=== PATIENT | female | born 1965 | race Hispanic/Latino ===

== ENCOUNTER 2019-02-25 21:20 | Observation (INO) | payer MEDICAID ==
[2019-02-25] MEDS ORDERED: ASPIRIN PO ONE (21:41)
[2019-02-25] MEDS ORDERED: MORPHINE IV ONE (21:47)
[2019-02-25] MEDS ORDERED: ZOFRAN IV ONE (21:47)
--- NOTE | 2019-02-25 21:47 | Emergency Department Report ---
ED Chest Pain HPI - General Chief Complaint: Chest Pain Stated Complaint: CHEST PAINS Time Seen by Provider: 02/25/19 21:29 Source: patient Mode of arrival: Ambulatory Limitations: No Limitations - History of Present Illness Initial Comments: 53-year-old female with history of CAD status post stents 2 and CABG,diabetes, presents to ED with chest pain since 3 PM. Patient states pain initially felt like indigestion. States it has been constant and began to worsen and around 8 PM. Patient states she took nitroglycerin 2 without relief, so she came to the ER. Patient reports nausea, no vomiting. Denies diaphoresis, shortness of breath. Patient states pain currently feels a tightness and pressure, similar to her previous episodes of chest pain that resulted in stent placement. Cardiology: [facility] Complaint: chest pain -: hour(s) (6) Onset: during rest Pain Location: left chest Pain Radiation: none Severity: severe Quality: tightness, pressure Consistency: constant Improves With: nothing Worsens With: nothing re: nausea. denies: vomting, diaphoresis, dyspnea Other Symptoms: denies: cough, fever Treatments Prior to Arrival: nitroglycerin Aspirin use within the Past 7 Days: (1) Yes (baby aspirin) - Related Data Allergies Allergy/AdvReac Type Severity Reaction Status Date / Time Penicillins Allergy Unknown Verified 02/25/19 21:26 Heart Score - HEART Score History: Moderately suspicious EKG: Normal Age: 45-65 Risk factors: > 3 risk factors or hx of atherosclerotic disease Troponin: < normal limit HEART Score: 4 ED Review of Systems ROS: Stated complaint: CHEST PAINS Other details as noted in HPI Comment: All other systems reviewed and negative Constitutional: denies: chills, fever Respiratory: denies: shortness of breath Cardiovascular: chest pain Gastrointestinal: nausea. denies: abdominal pain, vomiting ED Physical Exam - General Limitations: No Limitations General appearance: alert, other (appears uncomfortable) - Head Head exam: Present: atraumatic, normocephalic - Eye Eye exam: Present: normal appearance, PERRL, EOMI - ENT ENT exam: Present: mucous membranes moist - Neck Neck exam: Present: normal inspection - Respiratory Respiratory exam: Present: normal lung sounds bilaterally. Absent: respiratory distress - Cardiovascular Cardiovascular Exam: Present: regular rate, normal rhythm - GI/Abdominal GI/Abdominal exam: Present: soft. Absent: distended, tenderness - Extremities Exam Extremities exam: Present: normal inspection - Neurological Exam Neurological exam: Present: alert, oriented X3 - Psychiatric Psychiatric exam: Present: normal affect, normal mood - Skin Skin exam: Present: warm, dry, intact, normal color ED Course Vital Signs 02/25/19 02/25/19 02/25/19 21:23 21:40 21:45 Temperature 97.6 F 97.8 F Pulse Rate 94 H 81 84 Respiratory 20 12 15 Rate Blood Pressure 171/91 162/83 125/80 O2 Sat by Pulse 99 98 99 Oximetry 02/25/19 02/25/19 02/25/19 22:04 22:05 22:15 Temperature Pulse Rate 85 93 H Respiratory 16 10 L Rate Blood Pressure 135/66 118/60 O2 Sat by Pulse 95 Oximetry 02/25/19 02/25/19 02/25/19 22:28 22:30 23:16 Temperature Pulse Rate 89 90 Respiratory 22 16 Rate Blood Pressure 118/60 118/60 O2 Sat by Pulse 98 99 Oximetry 02/25/19 02/26/19 02/26/19 23:30 00:00 00:13 Temperature Pulse Rate 75 74 74 Respiratory 18 18 19 Rate Blood Pressure 130/72 121/65 123/72 O2 Sat by Pulse 96 95 97 Oximetry 02/26/19 02/26/19 02/26/19 01:00 01:30 02:00 Temperature Pulse Rate 83 77 75 Respiratory 9 L 16 15 Rate Blood Pressure 120/70 123/75 121/79 O2 Sat by Pulse 97 96 96 Oximetry 02/26/19 02/26/19 02/26/19 02:30 03:00 03:30 Temperature Pulse Rate 77 77 77 Respiratory 10 L 14 11 L Rate Blood Pressure 115/62 99/61 115/71 O2 Sat by Pulse 97 95 94 Oximetry 02/26/19 02/26/19 02/26/19 04:00 04:30 05:01 Temperature Pulse Rate 76 137 H Respiratory 21 27 H 14 Rate Blood Pressure 123/75 116/76 117/67 O2 Sat by Pulse 95 94 99 Oximetry ED Medical Decision Making - Lab Data Result diagrams: 02/25/19 21:35 02/25/19 21:35 - EKG Data -: EKG Interpreted by [place] EKG shows normal: sinus rhythm, axis, intervals, QRS complexes, ST-T waves Rate: normal - EKG Data Interpretation: no acute changes - Radiology Data Radiology results: report reviewed, image reviewed - Medical Decision Making 57-year-old female with history of CAD presents to ED with chest pain since this afternoon. Patient reported no relief with nitroglycerin at home. Patient given more nitroglycerin here in the ED in addition to aspirin, reported no relief, so morphine given 2 doses. EKG 2 showed no evidence of ST changes. Troponin also negative. CTA Chest was done to rule out dissection or PE and that was also negative. Possible infiltrate seen on CT, although patient is afebrile and no elevation and WBCs. Will give one dose of antibiotics to cover for possible infection. Patient feels much better at this time. Will admit to hospitalist, Dr Cheung, for further management. - Differential Diagnosis ACS, aortic dissection, PE Critical care attestation.: If time is entered above; I have spent that time in minutes in the direct care of this critically ill patient, excluding procedure time. ED Disposition Clinical Impression: Acute chest pain Disposition: OP ADMIT IP TO THIS HOSP Is pt being admited?: Yes Condition: Stable Instructions: Chest Pain (ED) Referrals: NOHEMI SCHMIDT MD [Primary Care Provider] - 3-5 Days Time of Disposition: 01:41
[2019-02-25 21:48] LABS: Basophils # (Auto) 0.1 K/mm3 (0.0-0.1); Basophils % (Auto) 1.2 % (0.0-1.8); Eosinophils # (Auto) 0.1 K/mm3 (0.0-0.4); Eosinophils % (Auto) 1.4 % (0.0-4.3); Lymphocytes # (Auto) 2.3 K/mm3 (1.2-5.4); Lymphocytes % (Auto) 36.1 % (13.4-35.0); Mean Corpuscular HGB Conc 36 % (30-34); Mean Corpuscular Volume 87 fl (79-97); Monocytes # (Auto) 0.5 K/mm3 (0.0-0.8); Monocytes % (Auto) 8.4 % (0.0-7.3); Platelet Count 184 K/mm3 (140-440); Red Blood Count 4.75 M/mm3 (3.65-5.03); Red Cell Distribution Width 14.2 % (13.2-15.2)
[2019-02-25 21:49] LABS: Hematocrit 41.3 % (30.3-42.9); Hemoglobin 14.9 gm/dl (10.1-14.3)
--- NOTE | 2019-02-25 22:00 | XRay Report ---
CHEST 1 VIEW INDICATION: chest pain. COMPARISON: None FINDINGS: Support devices: None. Heart: Normal heart size with sternotomy change. Lungs/Pleura: No acute air space or interstitial disease. Additional findings: None. IMPRESSION: 1. No acute findings. Signer Name: Gilberto Turcios MD Signed: 02/25/2019 9:55 PM Workstation Name: [id number]
[2019-02-25 22:02] LABS: INR 0.94 (0.87-1.13)
[2019-02-25 22:03] LABS: Partial Thromboplastin Time 27.6 Sec. (24.2-36.6)
[2019-02-25] MEDS: NITROSTAT SL ONE ×2 (22:04→22:28)
[2019-02-25 22:09] LABS: BUN/Creatinine Ratio 14; Blood Urea Nitrogen 11 mg/dL (7-17); Calcium 9.5 mg/dL (8.4-10.2); Hemolysis Index 16
[2019-02-26] MEDS ORDERED: ZOFRAN ONE (00:25)
[2019-02-26] MEDS ORDERED: ZOFRAN IV ONE (00:28)
[2019-02-26] MEDS ORDERED: MORPHINE ONE (01:25)
[2019-02-26] MEDS ORDERED: MORPHINE IV ONE (01:26)
--- NOTE | 2019-02-26 01:38 | Cat Scan Report ---
CT angiography of the chest with intravenous contrast and multiplanar MIP reconstructions INDICATION / CLINICAL INFORMATION: Chest pain. TECHNIQUE: Axial CT images were obtained after injection of 100 cc Omnipaque 350 IV contrast using CTA protocol. 3 plane MIP / 3D reconstructions were produced. All CT scans at this location are performed using CT dose reduction for ALARA by means of automated exposure control. COMPARISON: None available. FINDINGS: There is excellent opacification of the pulmonary arterial system bilaterally without intraluminal fi lling defect suggest acute PTE. The thoracic aorta is normal in caliber without dissection. Moderate coronary artery calcification is present. There is a prior median sternotomy. 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 The tracheobronchial tree is normal. There is mild patchy groundglass parenchymal disease in the left lower lobe anterolaterally. The lungs are otherwise clear. There is no evidence of adenopathy or eff usion. The visualized upper abdomen is normal. There is mild spondylosis without acute osseous abnormality. IMPRESSION: 1. No evidence of acute PTE. 2. Moderate coronary artery calcification. 3. Mild patchy parenchymal disease in the left lower lobe anterolaterally is likely related to pneumo pam. Signer Name: Ugo Gonzalez MD Signed: 02/26/2019 1:33 AM Workstation Name: [id number]
[2019-02-26] MEDS ORDERED: LEVAQUIN PO ONE (02:32)
[2019-02-26] MEDS ORDERED: TYLENOL PO PRN (02:53)
[2019-02-26] MEDS ORDERED: SODIUM CHLORIDE FLUSH SYRINGE 10 ML IV PRN (02:53)
[2019-02-26] MEDS ORDERED: D50W (25GM) Syringe IV PRN (03:04)
[2019-02-26] MEDS ORDERED: NACL 0.9% 1000 ML 1,000 ML IV ONE (03:05)
[2019-02-26] MEDS ORDERED: REGLAN ONE (03:42)
[2019-02-26] MEDS: REGLAN IV PRN (03:50)
[2019-02-26] MEDS ORDERED: NACL 0.9% 1000 ML 1,000 ML IV SCH (04:00)
--- NOTE | 2019-02-26 04:34 | History and Physical Report ---
History of Present Illness Date of examination: 02/26/19 Chief complaint: Chest pain History of present illness: Patient is a 53-year-old female with history of CAD status post cardia c stents placement and CABG who presented to the ED on account of few hours history of left-sided chest pain. She described it as pressure-like in nature, rated 10 over 10, radiates to the back and constant in duration. No known aggravating or relieving factors. She has associated shortness of breath, headaches, nausea without vomiting and lightheadedness. She denies palpitation, diaphoresis, leg swelling, cough, fever, orthopnea, PND, syncope or loss of consciousness. Patient reports having CABG at [facility] in September 2018. Her last cardiac stent placement was in 2016. Past History Past Medical History: CAD, diabetes, hyperlipidemia Past Surgical History: CABG, , Other (cardiac stents placement) Social history: smoking (patient had more than 40 years history of cigarette smoking, but quit in 09/2018. She denies alcohol or illicit drug use) Family history: other (Father from heart attack at 45 years old and mother from heart attack at 82 yrs old.) Medications and Allergies Allergies Allergy/AdvReac Type Severity Reaction Status Date / Time Penicillins Allergy Unknown Verified 02/25/19 21:26 Active Meds: Active Medications Acetaminophen (Tylenol) 650 mg PO Q4H PRN PRN Reason: Pain MILD(1-3)/Fever >100.5/OROZCO Aspirin (Baby Aspirin) 81 mg PO QDAY [facility] Dextrose (D50w (25gm) Syringe) 50 ml IV PRN PRN PRN Reason: Hypoglycemia Enoxaparin Sodium (Lovenox) 40 mg SUB-Q QDAY [facility] Famotidine (Pepcid) 20 mg PO BID [facility] Sodium Chloride (Nacl 0.9% 1000 Ml) 1,000 mls @ 125 mls/hr IV DIRECT [facility] Insulin Glargine (Lantus) 10 units SUB-Q BID [facility] Insulin Human Lispro (Humalog) 0 unit SUB-Q ACHS [facility]; Protocol Metoclopramide HCl (Reglan) 10 mg IV Q6H PRN PRN Reason: Nausea And Vomiting Last Admin: 02/26/19 03:50 Dose: 10 mg Documented by: Morphine Sulfate (Morphine) 4 mg IV Q4H PRN PRN Reason: Pain , Severe (7-10) Ondansetron HCl (Zofran) 4 mg IV Q8H PRN PRN Reason: Nausea And Vomiting Oxycodone/Acetaminophen (Percocet 5/325) 1 tab PO Q6H PRN PRN Reason: Pain, Moderate (4-6) Sodium Chloride (Sodium Chloride Flush Syringe 10 Ml) 10 ml IV BID [facility] Sodium Chloride (Sodium Chloride Flush Syringe 10 Ml) 10 ml IV PRN PRN PRN Reason: LINE FLUSH Review of Systems All systems: negative (all other systems reviewed with the patient and are negative unless otherwise stated) Exam - Constitutional Vitals: Temp Pulse Resp BP Pulse Ox 97.8 F 76 21 123/75 95 02/25/19 21:40 02/26/19 04:00 02/26/19 04:00 02/26/19 04:00 02/26/19 04:00 General appearance: Present: no acute distress, well-nourished - EENT Eyes: Present: PERRL, EOM intact ENT: hearing intact, clear oral mucosa - Neck Neck: Present: supple, normal ROM - Respiratory Respiratory effort: normal Respiratory: bilateral: CTA - Cardiovascular Rhythm: regular Heart Sounds: Present: S1 & S2. Absent: rub, click - Extremities Extremities: pulses symmetrical, No edema - Abdominal General gastrointestinal: Present: soft, non-tender, non-distended, normal bowel sounds Female genitourinary: Present: deferred - Integumentary Integumentary: Present: clear, warm, dry - Musculoskeletal Musculoskeletal: gait normal, strength equal bilaterally - Psychiatric Psychiatric: appropriate mood/affect, intact judgment & insight - Neurologic Neurologic: CNII-XII intact, moves all extremities Results - Labs CBC & Chem 7: 02/25/19 21:35 02/25/19 21:35 Labs: Laboratory Last Values WBC 6.3 K/mm3 (4.5-11.0) 02/25/19 21:35 RBC 4.75 M/mm3 (3.65-5.03) 02/25/19 21:35 Hgb 14.9 gm/dl (10.1-14.3) H 02/25/19 21:35 Hct 41.3 % (30.3-42.9) 02/25/19 21:35 MCV 87 fl (79-97) 02/25/19 21:35 MCH 31 pg (28-32) 02/25/19 21:35 MCHC 36 % (30-34) H 02/25/19 21:35 RDW 14.2 % (13.2-15.2) 02/25/19 21:35 Plt Count 184 K/mm3 (140-440) 02/25/19 21:35 Lymph % (Auto) 36.1 % (13.4-35.0) H 02/25/19 21:35 [place] % (Auto) 8.4 % (0.0-7.3) H 02/25/19 21:35 Eos % (Auto) 1.4 % (0.0-4.3) 02/25/19 21:35 Baso % (Auto) 1.2 % (0.0-1.8) 02/25/19 21:35 Lymph # 2.3 K/mm3 (1.2-5.4) 02/25/19 21:35 [place] # 0.5 K/mm3 (0.0-0.8) 02/25/19 21:35 Eos # 0.1 K/mm3 (0.0-0.4) 02/25/19 21:35 Baso # 0.1 K/mm3 (0.0-0.1) 02/25/19 21:35 Seg Neutrophils % 52.9 % (40.0-70.0) 02/25/19 21:35 Seg Neutrophils # 3.3 K/mm3 (1.8-7.7) 02/25/19 21:35 PT 12.3 Sec. (12.2-14.9) 02/25/19 21:35 INR 0.94 (0.87-1.13) 02/25/19 21:35 APTT 27.6 Sec. (24.2-36.6) 02/25/19 21:35 Sodium 140 mmol/L (137-145) 02/25/19 21:35 Potassium 3.9 mmol/L (3.6-5.0) 02/25/19 21:35 Chloride 103.5 mmol/L (98-107) 02/25/19 21:35 Carbon Dioxide 22 mmol/L (22-30) 02/25/19 21:35 18 mmol/L 08/21/19 21:35 BUN 11 mg/dL (7-17) 02/25/19 21:35 0.8 mg/dL (0.7-1.2) 02/25/19 21:35 Estimated GFR > 60 ml/min 02/25/19 21:35 14 % 02/25/19 21:35 Glucose 329 mg/dL (65-100) H 02/25/19 21:35 Calcium 9.5 mg/dL (8.4-10.2) 02/25/19 21:35 < 0.010 ng/mL (0.00-0.029) 02/26/19 00:53 Assessment and Plan Assessment and plan: Acute left-sided chest pain, probably due to pneumonia -CTA chest showed finding suspicious for pneumonia in the left lower lobe -On IV antibiotic with levofloxacin -Blood cultures obtained, follow up DM2 with hyperglycemia -On SSI and Lantus History of CAD s/p cardiac stents placement and CABG -Resume home medications when available HLD -Resume statin Elevated BP without prior diagnosis of hypertension -BP improved, will monitor DVT prophylaxis with Lovenox and GI prophylaxis with famotidine Disposition: Patient will be placed in observation status pending further treatment and evaluation Time spent: 38 minutes
[2019-02-26] MEDS: PERCOCET 5/325 PO PRN ×2 (10:14→17:59)
[2019-02-26] MEDS: ZOFRAN IV PRN ×2 (10:14→17:59)
[2019-02-26] MEDS: BABY ASPIRIN PO SCH (10:15)
[2019-02-26] MEDS: LOVENOX SUB-Q SCH (10:15)
[2019-02-26] MEDS: PEPCID PO SCH ×2 (10:15→21:48)
[2019-02-26] MEDS: SODIUM CHLORIDE FLUSH SYRINGE 10 ML IV SCH ×2 (10:17→21:49)
[2019-02-26] MEDS: HumaLOG SUB-Q SCH ×4 (10:35→21:49)
--- NOTE | 2019-02-26 10:54 | Progress Note ---
Assessment and Plan Assessment and plan: Lower lobe pneumonia -CTA chest showed finding suspicious for pneumonia in the left lower lobe -On IV antibiotic with levofloxacin -Blood cultures obtained, follow up Chest pain. -Etiology may be pleuritic. However, given history of CAD, we will consult cardiology for further evaluation. History of CAD s/p cardiac stents placement and CABG -Resume home medications when available -Cardiology consultation. DM2 with hyperglycemia -On SSI and Lantus HLD -Resume statin Elevated BP without prior diagnosis of hypertension -BP improved, will monitor DVT prophylaxis with Lovenox and GI prophylaxis with famotidine History Interval history: No new issues overnight. Hospitalist Physical - Constitutional Vitals: Temp Pulse Resp BP Pulse Ox 97.4 F L 70 16 113/60 98 02/26/19 08:36 02/26/19 08:36 02/26/19 08:36 02/26/19 08:36 02/26/19 08:36 General appearance: Present: no acute distress, well-nourished - EENT Eyes: Present: PERRL, EOM intact ENT: hearing intact, clear oral mucosa, dentition normal - Neck Neck: Present: supple, normal ROM - Respiratory Respiratory effort: normal Respiratory: bilateral: CTA - Cardiovascular Rhythm: regular Heart Sounds: Present: S1 & S2. Absent: gallop, rub - Extremities Extremities: no ischemia, No edema, Full ROM - Abdominal General gastrointestinal: soft, non-tender, non-distended, normal bowel sounds - Integumentary Integumentary: Present: clear, warm, dry - Neurologic Neurologic: CNII-XII intact, moves all extremities Results - Labs CBC & Chem 7: 02/25/19 21:35 02/25/19 21:35 Labs: Laboratory Last Values WBC 6.3 K/mm3 (4.5-11.0) 02/25/19 21:35 RBC 4.75 M/mm3 (3.65-5.03) 02/25/19 21:35 Hgb 14.9 gm/dl (10.1-14.3) H 02/25/19 21:35 Hct 41.3 % (30.3-42.9) 02/25/19 21:35 MCV 87 fl (79-97) 02/25/19 21:35 MCH 31 pg (28-32) 02/25/19 21:35 MCHC 36 % (30-34) H 02/25/19 21:35 RDW 14.2 % (13.2-15.2) 02/25/19 21:35 Plt Count 184 K/mm3 (140-440) 02/25/19 21:35 Lymph % (Auto) 36.1 % (13.4-35.0) H 02/25/19 21:35 [place] % (Auto) 8.4 % (0.0-7.3) H 02/25/19 21:35 Eos % (Auto) 1.4 % (0.0-4.3) 02/25/19 21:35 Baso % (Auto) 1.2 % (0.0-1.8) 02/25/19 21:35 Lymph # 2.3 K/mm3 (1.2-5.4) 02/25/19 21:35 [place] # 0.5 K/mm3 (0.0-0.8) 02/25/19 21:35 Eos # 0.1 K/mm3 (0.0-0.4) 02/25/19 21:35 Baso # 0.1 K/mm3 (0.0-0.1) 02/25/19 21:35 Seg Neutrophils % 52.9 % (40.0-70.0) 02/25/19 21:35 Seg Neutrophils # 3.3 K/mm3 (1.8-7.7) 02/25/19 21:35 PT 12.3 Sec. (12.2-14.9) 02/25/19 21:35 INR 0.94 (0.87-1.13) 02/25/19 21:35 APTT 27.6 Sec. (24.2-36.6) 02/25/19 21:35 Sodium 140 mmol/L (137-145) 02/25/19 21:35 Potassium 3.9 mmol/L (3.6-5.0) 02/25/19 21:35 Chloride 103.5 mmol/L (98-107) 02/25/19 21:35 Carbon Dioxide 22 mmol/L (22-30) 02/25/19 21:35 18 mmol/L 02/25/19 21:35 BUN 11 mg/dL (7-17) 02/25/19 21:35 0.8 mg/dL (0.7-1.2) 02/25/19 21:35 Estimated GFR > 60 ml/min 02/25/19 21:35 14 % 02/25/19 21:35 Glucose 329 mg/dL (65-100) H 02/25/19 21:35 POC Glucose 274 (70-105) H 02/26/19 09:10 Calcium 9.5 mg/dL (8.4-10.2) 02/25/19 21:35 < 0.010 ng/mL (0.00-0.029) 02/26/19 00:53 Active Medications - Current Medications Current Medications: Generic Name Dose Route Start Last Admin Trade Name Freq PRN Reason Stop Dose Admin Acetaminophen 650 mg 02/26/19 02:53 Tylenol PO Q4H PRN Pain MILD(1-3)/Fever >100.5/OROZCO Aspirin 81 mg 02/26/19 10:00 02/26/19 10:15 Baby Aspirin PO 81 mg QDAY [facility] Administration Dextrose 50 ml 02/26/19 03:04 D50w (25gm) Syringe IV PRN PRN Hypoglycemia Enoxaparin Sodium 40 mg 02/26/19 10:00 02/26/19 10:15 Lovenox SUB-Q 40 mg QDAY [facility] Administration Famotidine 20 mg 02/26/19 10:00 02/26/19 10:15 Pepcid PO 20 mg BID [facility] Administration Sodium Chloride 1,000 mls @ 125 mls/hr 02/26/19 04:00 Nacl 0.9% 1000 Ml IV DIRECT [facility] Levofloxacin/Dextrose 750 mg in 150 mls @ 100 mls/hr 02/26/19 22:00 Levaquin 750mg/150ml IV Q24H [facility] Protocol Insulin Glargine 10 units 02/26/19 10:00 Lantus SUB-Q BID [facility] Insulin Human Lispro 0 unit 02/26/19 07:30 02/26/19 10:35 Humalog SUB-Q 4 unit ACHS [facility] Administration Protocol Metoclopramide HCl 10 mg 02/26/19 03:50 02/26/19 03:50 Reglan IV 10 mg Q6H PRN Administration Nausea And Vomiting Morphine Sulfate 4 mg 02/26/19 02:53 Morphine IV Q4H PRN Pain , Severe (7-10) Ondansetron HCl 4 mg 02/26/19 02:53 02/26/19 10:14 Zofran IV 4 mg Q8H PRN Administration Nausea And Vomiting Oxycodone/Acetaminophen 1 tab 02/26/19 02:53 02/26/19 10:14 Percocet 5/325 PO 1 tab Q6H PRN Administration Pain, Moderate (4-6) Sodium Chloride 10 ml 02/26/19 10:00 02/26/19 10:17 Sodium Chloride Flush Syringe 10 Ml IV 10 ml BID [facility]Z Administration Sodium Chloride 10 ml 02/26/19 02:53 Sodium Chloride Flush Syringe 10 Ml IV PRN PRN LINE FLUSH
[2019-02-26] MEDS: LANTUS SUB-Q SCH ×2 (11:40→21:48)
[2019-02-26] MEDS: LEVAQUIN 750MG/150ML 750 MG/150 ML BAG IV SCH (21:48)
[2019-02-27] MEDS: REGLAN IV PRN ×2 (00:09→20:26)
[2019-02-27 05:47] LABS: Hematocrit 39.1 % (30.3-42.9); Hemoglobin 13.7 gm/dl (10.1-14.3); Mean Corpuscular HGB Conc 35 % (30-34); Mean Corpuscular Volume 88 fl (79-97); Platelet Count 142 K/mm3 (140-440); Red Blood Count 4.42 M/mm3 (3.65-5.03); Red Cell Distribution Width 14.2 % (13.2-15.2)
[2019-02-27 06:12] LABS: Alanine Aminotransferase 12 units/L (7-56); Albumin 3.6 g/dL (3.9-5); BUN/Creatinine Ratio 14; Blood Urea Nitrogen 10 mg/dL (7-17); Calcium 8.6 mg/dL (8.4-10.2); Hemolysis Index 12
[2019-02-27] MEDS: HumaLOG SUB-Q SCH ×4 (09:14→21:21)
[2019-02-27] MEDS: PEPCID PO SCH ×2 (09:44→21:53)
[2019-02-27] MEDS: SODIUM CHLORIDE FLUSH SYRINGE 10 ML IV SCH ×2 (09:44→22:00)
[2019-02-27] MEDS: LOVENOX SUB-Q SCH (09:44)
[2019-02-27] MEDS: BABY ASPIRIN PO SCH (09:44)
--- NOTE | 2019-02-27 11:28 | Consultation ---
History of Present Illness Consult date: 02/27/19 Consult reason: chest pain History of present illness: Patient is a 53-year old woman who was brought in with chest pain. Patient a history of coronary artery disease and is status post 2 vessel bypass grafting September 2018 at [facility]. Patient had LOW to first diagonal and SVG to obtuse marginal. Normal left ventricular systolic function. She is followed by a physician in [facility]. Cycled troponin were normal and her ECG is benign. Further evaluation with a chest CT scan reports left lower lobe pneumonia. No evidence of PE. Past History Past Medical History: CAD, diabetes, hypertension, hyperlipidemia Past Surgical History: CABG, Social history: smoking (patient had more than 40 years history of cigarette smoking, but quit in 09/2018. She denies alcohol or illicit drug use) Family history: other (Father from heart attack at 45 years old and mother from heart attack at 82 yrs old.) Medications and Allergies Allergies Allergy/AdvReac Type Severity Reaction Status Date / Time Penicillins Allergy Unknown Verified 02/25/19 21:26 Home Medications Medication Instructions Recorded Confirmed Last Taken Type Amitriptyline [Elavil] 25 mg PO QHS 02/26/19 02/26/19 Unknown History Metoprolol [Lopressor TAB] 12.5 mg PO Q12H 02/26/19 02/26/19 Unknown History glipiZIDE XL [Glucotrol Xl] 10 mg PO BID 02/26/19 02/26/19 Unknown History tiZANidine [Zanaflex 4mg TAB] 4 mg PO QHS 02/26/19 02/26/19 Unknown History Active Meds: Active Medications Acetaminophen (Tylenol) 650 mg PO Q4H PRN PRN Reason: Pain MILD(1-3)/Fever >100.5/OROZCO Last Admin: 02/27/19 08:32 Dose: 650 mg Documented by: Aspirin (Baby Aspirin) 81 mg PO QDAY [facility] Last Admin: 02/27/19 09:44 Dose: 81 mg Documented by: Dextrose (D50w (25gm) Syringe) 50 ml IV PRN PRN PRN Reason: Hypoglycemia Enoxaparin Sodium (Lovenox) 40 mg SUB-Q QDAY [facility] Last Admin: 02/27/19 09:44 Dose: 40 mg Documented by: Famotidine (Pepcid) 20 mg PO BID [facility] Last Admin: 02/27/19 09:44 Dose: 20 mg Documented by: Sodium Chloride (Nacl 0.9% 1000 Ml) 1,000 mls @ 125 mls/hr IV DIRECT [facility] Last Admin: 02/27/19 00:09 Dose: 125 mls/hr Documented by: Levofloxacin/Dextrose (Levaquin 750mg/150ml) 750 mg in 150 mls @ 100 mls/hr IV Q24H [facility]; Protocol Last Admin: 02/26/19 21:48 Dose: 100 mls/hr Documented by: Insulin Glargine (Lantus) 10 units SUB-Q BID [facility] Last Admin: 02/26/19 21:48 Dose: 10 units Documented by: Insulin Human Lispro (Humalog) 0 unit SUB-Q ACHS [facility]; Protocol Last Admin: 02/27/19 09:14 Dose: 4 unit Documented by: Metoclopramide HCl (Reglan) 10 mg IV Q6H PRN PRN Reason: Nausea And Vomiting Last Admin: 02/27/19 00:09 Dose: 10 mg Documented by: Morphine Sulfate (Morphine) 4 mg IV Q4H PRN PRN Reason: Pain , Severe (7-10) Ondansetron HCl (Zofran) 4 mg IV Q8H PRN PRN Reason: Nausea And Vomiting Last Admin: 02/26/19 17:59 Dose: 4 mg Documented by: Oxycodone/Acetaminophen (Percocet 5/325) 1 tab PO Q6H PRN PRN Reason: Pain, Moderate (4-6) Last Admin: 02/26/19 17:59 Dose: 1 tab Documented by: Sodium Chloride (Sodium Chloride Flush Syringe 10 Ml) 10 ml IV BID [facility] Last Admin: 02/27/19 09:44 Dose: 10 ml Documented by: Sodium Chloride (Sodium Chloride Flush Syringe 10 Ml) 10 ml IV PRN PRN PRN Reason: LINE FLUSH Physical Examination Vital Signs Temp Pulse Resp BP Pulse Ox 97.6 F 94 H 20 171/91 99 02/25/19 21:23 02/25/19 21:23 02/25/19 21:23 02/25/19 21:23 02/25/19 21:23 General appearance: no acute distress HEENT: Positive: PERRL Neck: Positive: trachea midline Cardiac: Positive: Reg Rate and Rhythm Lungs: Positive: Decreased Breath Sounds Neuro: Positive: Grossly Intact Extremities: Absent: edema Results 02/27/19 04:45 02/27/19 04:45 Cardiac Enzymes 02/27/19 Range/Units 04:45 AST 13 (5-40) units/L CBC 02/27/19 Range/Units 04:45 WBC 4.1 L (4.5-11.0) K/mm3 RBC 4.42 (3.65-5.03) M/mm3 Hgb 13.7 (10.1-14.3) gm/dl Hct 39.1 (30.3-42.9) % Plt Count 142 (140-440) K/mm3 Comprehensive Metabolic Panel 02/27/19 Range/Units 04:45 Sodium 138 (137-145) mmol/L Potassium 4.1 (3.6-5.0) mmol/L Chloride 103.7 (98-107) mmol/L Carbon Dioxide 26 (22-30) mmol/L BUN 10 (7-17) mg/dL Creatinine 0.7 (0.7-1.2) mg/dL Glucose 229 H (65-100) mg/dL Calcium 8.6 (8.4-10.2) mg/dL AST 13 (5-40) units/L ALT 12 (7-56) units/L Alkaline Phosphatase 72 (35-129) units/L Total Protein 6.0 L (6.3-8.2) g/dL Albumin 3.6 L (3.9-5) g/dL Assessment and Plan Pneumonia Hx of CAD with 2v CABG at [facility] 09/2018 Hypertension Hyperlipidemia Diabetes No cardiac workup indicated. Continue medical therapy for coronary artery disease.
[2019-02-27] MEDS: LANTUS SUB-Q SCH ×2 (11:32→21:54)
[2019-02-27] MEDS: PERCOCET 5/325 PO PRN (13:21)
--- NOTE | 2019-02-27 14:00 | Progress Note ---
Assessment and Plan Assessment and plan: Lower lobe pneumonia -CTA chest showed finding suspicious for pneumonia in the left lower lobe -On IV antibiotic with levofloxacin -Blood cultures obtained, follow up Chest pain. -Etiology may be pleuritic. However, given history of CAD, we will consult cardiology for further evaluation. History of CAD s/p cardiac stents placement and CABG -Resume home medications when available -Cardiology consultation. DM2 with hyperglycemia -On SSI and Lantus HLD -Resume statin Elevated BP without prior diagnosis of hypertension -BP improved, will monitor DVT prophylaxis with Lovenox and GI prophylaxis with famotidine History Interval history: No new issues overnight. Hospitalist Physical - Constitutional Vitals: Temp Pulse Resp BP Pulse Ox 98.4 F 69 16 122/69 98 02/27/19 08:51 02/27/19 08:54 02/27/19 08:51 02/27/19 08:51 02/27/19 08:51 General appearance: Present: no acute distress - EENT Eyes: Present: PERRL, EOM intact ENT: hearing intact, clear oral mucosa, dentition normal - Neck Neck: Present: supple, normal ROM - Respiratory Respiratory effort: normal Respiratory: bilateral: CTA - Cardiovascular Rhythm: regular Heart Sounds: Present: S1 & S2. Absent: gallop, rub - Extremities Extremities: no ischemia, No edema, Full ROM - Abdominal General gastrointestinal: soft, non-tender, non-distended, normal bowel sounds - Integumentary Integumentary: Present: clear, warm, dry - Neurologic Neurologic: CNII-XII intact, moves all extremities Results - Labs CBC & Chem 7: 02/27/19 04:45 02/27/19 04:45 Labs: Laboratory Last Values WBC 4.1 K/mm3 (4.5-11.0) L 02/27/19 04:45 RBC 4.42 M/mm3 (3.65-5.03) 02/27/19 04:45 Hgb 13.7 gm/dl (10.1-14.3) 02/27/19 04:45 Hct 39.1 % (30.3-42.9) 02/27/19 04:45 MCV 88 fl (79-97) 02/27/19 04:45 MCH 31 pg (28-32) 02/27/19 04:45 MCHC 35 % (30-34) H 02/27/19 04:45 RDW 14.2 % (13.2-15.2) 02/27/19 04:45 Plt Count 142 K/mm3 (140-440) 02/27/19 04:45 Lymph % (Auto) 36.1 % (13.4-35.0) H 02/25/19 21:35 [place] % (Auto) 8.4 % (0.0-7.3) H 02/25/19 21:35 Eos % (Auto) 1.4 % (0.0-4.3) 02/25/19 21:35 Baso % (Auto) 1.2 % (0.0-1.8) 02/25/19 21:35 Lymph # 2.3 K/mm3 (1.2-5.4) 02/25/19 21:35 [place] # 0.5 K/mm3 (0.0-0.8) 02/25/19 21:35 Eos # 0.1 K/mm3 (0.0-0.4) 02/25/19 21:35 Baso # 0.1 K/mm3 (0.0-0.1) 02/25/19 21:35 Seg Neutrophils % 52.9 % (40.0-70.0) 02/25/19 21:35 Seg Neutrophils # 3.3 K/mm3 (1.8-7.7) 02/25/19 21:35 PT 12.3 Sec. (12.2-14.9) 02/25/19 21:35 INR 0.94 (0.87-1.13) 02/25/19 21:35 APTT 27.6 Sec. (24.2-36.6) 02/25/19 21:35 Sodium 138 mmol/L (137-145) 02/27/19 04:45 Potassium 4.1 mmol/L (3.6-5.0) 02/27/19 04:45 Chloride 103.7 mmol/L (98-107) 02/27/19 04:45 Carbon Dioxide 26 mmol/L (22-30) 02/27/19 04:45 12 mmol/L 02/27/19 04:45 BUN 10 mg/dL (7-17) 02/27/19 04:45 0.7 mg/dL (0.7-1.2) 02/27/19 04:45 Estimated GFR > 60 ml/min 02/27/19 04:45 14 % 02/27/19 04:45 Glucose 229 mg/dL (65-100) H 02/27/19 04:45 POC Glucose 272 (70-105) H 02/27/19 11:35 Calcium 8.6 mg/dL (8.4-10.2) 02/27/19 04:45 Magnesium 1.80 mg/dL (1.7-2.3) 02/27/19 04:45 0.20 mg/dL (0.1-1.2) 02/27/19 04:45 AST 13 units/L (5-40) 02/27/19 04:45 ALT 12 units/L (7-56) 02/27/19 04:45 72 units/L (35-129) 02/27/19 04:45 < 0.010 ng/mL (0.00-0.029) 02/26/19 00:53 6.0 g/dL (6.3-8.2) L 02/27/19 04:45 3.6 g/dL (3.9-5) L 02/27/19 04:45 1.5 % 02/27/19 04:45 Active Medications - Current Medications Current Medications: Generic Name Dose Route Start Last Admin Trade Name Freq PRN Reason Stop Dose Admin Acetaminophen 650 mg 02/26/19 02:53 02/27/19 08:32 Tylenol PO 650 mg Q4H PRN Administration Pain MILD(1-3)/Fever >100.5/OROZCO Aspirin 81 mg 02/26/19 10:00 02/27/19 09:44 Baby Aspirin PO 81 mg QDAY LIZ Administration Dextrose 50 ml 02/26/19 03:04 D50w (25gm) Syringe IV PRN PRN Hypoglycemia Enoxaparin Sodium 40 mg 02/26/19 10:00 02/27/19 09:44 Lovenox SUB-Q 40 mg QDAY LIZ Administration Famotidine 20 mg 02/26/19 10:00 02/27/19 09:44 Pepcid PO 20 mg BID LIZ Administration Sodium Chloride 1,000 mls @ 125 mls/hr 02/26/19 04:00 02/27/19 00:09 Nacl 0.9% 1000 Ml IV 125 mls/hr DIRECT LIZ Administration Levofloxacin/Dextrose 750 mg in 150 mls @ 100 mls/hr 02/26/19 22:00 02/26/19 21:48 Levaquin 750mg/150ml IV 100 mls/hr Q24H LIZ Administration Protocol Insulin Glargine 10 units 02/26/19 10:00 02/27/19 11:32 Lantus SUB-Q 10 units BID LIZ Administration Insulin Human Lispro 0 unit 02/26/19 07:30 02/27/19 13:20 Humalog SUB-Q 4 unit ACHS LIZ Administration Protocol Metoclopramide HCl 10 mg 02/26/19 03:50 02/27/19 00:09 Reglan IV 10 mg Q6H PRN Administration Nausea And Vomiting Morphine Sulfate 4 mg 02/26/19 02:53 Morphine IV Q4H PRN Pain , Severe (7-10) Ondansetron HCl 4 mg 02/26/19 02:53 02/26/19 17:59 Zofran IV 4 mg Q8H PRN Administration Nausea And Vomiting Oxycodone/Acetaminophen 1 tab 02/26/19 02:53 02/27/19 13:21 Percocet 5/325 PO 1 tab Q6H PRN Administration Pain, Moderate (4-6) Sodium Chloride 10 ml 02/26/19 10:00 02/27/19 09:44 Sodium Chloride Flush Syringe 10 Ml IV 10 ml BID LZI Administration Sodium Chloride 10 ml 02/26/19 02:53 Sodium Chloride Flush Syringe 10 Ml IV PRN PRN LINE FLUSH
[2019-02-27] MEDS: ZOFRAN IV PRN (16:25)
[2019-02-27] MEDS: MORPHINE IV PRN (20:26)
[2019-02-27] MEDS ORDERED: AMBIEN PO PRN (21:39)
[2019-02-27] MEDS: LEVAQUIN 750MG/150ML 750 MG/150 ML BAG IV SCH (21:54)
[2019-02-28] MEDS: ZOFRAN IV PRN ×2 (04:52→08:05)
[2019-02-28] MEDS: MORPHINE IV PRN (04:52)
--- NOTE | 2019-02-28 08:05 | Discharge Summary ---
Providers - Providers Date of Admission: 02/26/19 02:53 Date of discharge: 02/28/19 Attending physician: IRMA VERMA 02/26/19 10:54 Consult to Physician [CONS] Routine Comment: per Dr. Luis Carlos Dunlap Consulting Provider: JOHNSON DOYLE Physician Instructions: Reason For Exam: cp Primary care physician: [facility], Hospitalization Reason for admission: cp Condition: Stable Hospital course: Patient is a 53-year old woman who was brought in with chest pain. Patient has a history of coronary artery disease and is status post 2 vessel bypass grafting September 2018 at [facility] [place]. Patient had LOW to first diagonal and SVG to obtuse marginal. Normal left ventricular systolic function. She is followed by a physician in [facility]. Cycled troponin were normal and her ECG is benign. Further evaluation with a chest CT scan reports left lower lobe pneumonia. No evidence of PE. The patient was admitted with diagnosis of left lower lobe pneumonia. Etiology of chest pain was felt to be pleurisy. Cardiology was consulted and felt that no further cardiac workup was needed. Patient received IV antibiotics and progressed well. Dedicated discharge time 33 minutes. Disposition: DC- TO HOME OR SELFCARE Time spent for discharge: 33 - Discharge Diagnoses (1) LLL pneumonia Status: Acute (2) Pleurisy Status: Acute (3) Acute chest pain Status: Acute Core Measure Documentation - Palliative Care Palliative Care/ Comfort Measures: Not Applicable - Core Measures Any of the following diagnoses?: none Exam - Constitutional Vitals: Temp Pulse Resp BP Pulse Ox 98.0 F 71 18 135/79 97 02/28/19 04:52 02/28/19 04:52 02/28/19 04:52 02/28/19 04:52 02/28/19 04:52 General appearance: Present: no acute distress, well-nourished - EENT Eyes: Present: PERRL ENT: hearing intact, clear oral mucosa - Neck Neck: Present: supple, normal ROM - Respiratory Respiratory effort: normal Respiratory: bilateral: CTA - Cardiovascular Heart Sounds: Present: S1 & S2. Absent: rub, click - Extremities Extremities: pulses symmetrical, No edema Peripheral Pulses: within normal limits - Abdominal General gastrointestinal: Present: soft, non-tender, non-distended, normal bowel sounds Female genitourinary: Present: normal - Integumentary Integumentary: Present: clear, warm, dry - Musculoskeletal Musculoskeletal: gait normal, strength equal bilaterally - Psychiatric Psychiatric: appropriate mood/affect, intact judgment & insight - Neurologic Neurologic: CNII-XII intact, moves all extremities Plan Activity: no restrictions Weight Bearing Status: Full Weight Bearing Diet: regular Follow up with: [facility] [Primary Care Provider] - 3-5 Days Prescriptions: Zolpidem [Ambien] 5 mg PO QHS PRN #5 tablet PRN Reason: Sleep Ciprofloxacin HCl [Ciprofloxacin TAB] 500 mg PO Q12HR #20 tab Amitriptyline [Elavil] 25 mg PO QHS #30 tablet glipiZIDE XL [Glucotrol Xl] 10 mg PO BID #60 tablet Metoprolol [Lopressor TAB] 12.5 mg PO Q12H #60 tablet oxyCODONE /ACETAMINOPHEN [Percocet 5/325 mg] 1 tab PO Q6H PRN #8 tablet PRN Reason: Pain, Moderate (4-6) tiZANidine [Zanaflex 4mg TAB] 4 mg PO QHS #20 tablet
[2019-02-28 08:37] VITALS: BP 110/72
[2019-02-28] MEDS: HumaLOG SUB-Q SCH ×2 (08:55→13:24)
[2019-02-28] MEDS: LOVENOX SUB-Q SCH (10:22)
[2019-02-28] MEDS: BABY ASPIRIN PO SCH (10:22)
[2019-02-28] MEDS: PEPCID PO SCH (10:22)
[2019-02-28] MEDS: LANTUS SUB-Q SCH (10:24)
[2019-02-28] MEDS: SODIUM CHLORIDE FLUSH SYRINGE 10 ML IV SCH (11:31)
== END 2019-02-28 14:02 | disposition home or self-care (01) ==
LOC: ED 21:20 → 4A 02-26 02:53
PROVIDERS: ADMIT Internal Medicine; ATTEND Hospitalist
DX: R07.89 Other chest pain (principal); E11.65 Type 2 diabetes mellitus with hyperglycemia; I25.10 Atherosclerotic heart disease of native coronary artery without angina pectoris; E78.5 Hyperlipidemia, unspecified; R03.0 Elevated blood-pressure reading, without diagnosis of hypertension; Z87.891 Personal history of nicotine dependence
CPT/HCPCS: 36415; 71045; 71275; 80048; 80053; 82962; 83735; 84484; 85025; 85027; 85610; 85730; 87040; 93005; 93010; 96365; 96366; 96372; 96375; 96376; 99284; 99406; G0378; J1650; J1956; J2270; J2405; J2765; J7030; Q9967; J1815